=== PATIENT | male | born 2000 | race Two or more races ===

== ENCOUNTER 2019-05-10 14:55 | Emergency (ER) | payer SELFPAY ==
[~2019-05-10] VITALS: Ht 185.4 cm; Wt 95.3 kg
[2019-05-10 15:01] VITALS: BP 122/52
[2019-05-10] MEDS ORDERED: SILVER SULFADIAZINE 1 % TOPICAL CREAM 50GM TOP ONE (16:30)
== END 2019-05-10 16:52 | disposition home or self-care (01) ==
LOC: ER 14:55
DX: T23.211A Burn of second degree of right thumb (nail), initial encounter (principal); X10.2XXA Contact with fats and cooking oils, initial encounter; Y93.89 Activity, other specified; Y99.8 Other external cause status; Y92.89 Other specified places as the place of occurrence of the external cause
CPT/HCPCS: 16000

== ENCOUNTER 2020-05-18 12:33 | Emergency (ER) | payer OTHER ==
[~2020-05-18] VITALS: Ht 185.4 cm; Wt 89.4 kg
[2020-05-18 12:56] VITALS: BP 108/74
[2020-05-18] MEDS ORDERED: ACETAMINOPHEN 325 MG TAB PO ONE (13:00)
== END 2020-05-18 13:08 | disposition home or self-care (01) ==
LOC: ER 12:33
DX: U07.1 COVID-19 (principal)
CPT/HCPCS: 71045; 87635